=== PATIENT | male | born 1965 | race Caucasian/White ===

== ENCOUNTER 2021-05-07 16:44 | Inpatient (IN) | payer MEDICAID ==
[~2021-05-07] VITALS: Ht 185.4 cm; Wt 86.2 kg
--- NOTE | 2021-05-07 16:53 | NUR ---
PT CAME TO ER C/O DRY MOUTH X 1 MONTH. DENIES ANY OTHER SYMPTOMS, DENIES TAKING ANY NEW MEDICATIONS. AAOX4, BREATHING EVEN AND UNLABORED, SKIN IS WARM AND DRY. SKIN TURGOR IS NORMAL. TONGUE IS MOIST, MISSING TEETH. AWAITING MD FOR EVAL.
--- NOTE | 2021-05-07 16:54 | NUR ---
DR. MARAVILLA AT BEDSIDE
--- NOTE | 2021-05-07 17:04 | NUR ---
BLOOD GLUCOSE EXCEEDS 600. DR MARAVILLA AWARE
--- NOTE | 2021-05-07 17:21 | NUR ---
BLOOD SAMPLE OBTAINED AND SENT TO LAB
--- NOTE | 2021-05-07 17:26 | NUR ---
PT AMBULATED TO RESTROOM
[2021-05-07] MEDS ORDERED: IV NS 0.9% 1,000 ML BAG IV ONE (17:30)
--- NOTE | 2021-05-07 17:30 | NUR ---
PT RETURNED TO BED FROM RESTROOM. IV FLUIDS HUNG
--- NOTE | 2021-05-07 17:31 | NUR ---
URINE SAMPLE OBTAINED AND SENT TO LAB
--- NOTE | 2021-05-07 17:32 | NUR ---
RADIOLOGY AT BEDSIDE
[2021-05-07 17:52] LABS: BASOPHILS # (AUTO) 0.1 K/uL (0.0-0.2); BASOPHILS % (AUTO) 1.5 % (0.0-2.0); EOSINOPHILS % (AUTO) 1.8 % (0.0-6.0); HEMATOCRIT 46 % (39-51); HEMOGLOBIN 15.1 g/dL (13.5-17.5); LYMPHOCYTES # (AUTO) 1.4 K/uL (0.8-4.8); LYMPHOCYTES % (AUTO) 20.8 % (20.0-44.0); MEAN CORPUSCULAR HGB CONC 33 g/dl (31.0-36.0); MEAN CORPUSCULAR VOLUME 93 fL (80-96); MONOCYTES # (AUTO) 0.5 K/uL (0.1-1.30); MONOCYTES % (AUTO) 7.6 % (2.0-12.0); NEUTROPHILS # (AUTO) 4.5 K/uL (1.8-8.9); NEUTROPHILS % (AUTO) 68.3 % (43.0-81.0); PLATELET COUNT (AUTO) 200 K/uL (150-450); WHITE BLOOD COUNT (AUTO) 6.5 K/uL (4.3-11.0)
[2021-05-07 17:59] LABS: ALBUMIN 3.7 g/dL (3.4-5.0); BILIRUBIN,DIRECT 0.3 mg/dL (0.0-0.2); BILIRUBIN,TOTAL 0.7 mg/dL (0.2-1.0); CALCIUM, SERUM 9.3 mg/dL (8.5-10.1); CREATININE 1.2 mg/dL (0.6-1.3)
--- NOTE | 2021-05-07 18:00 | NUR ---
PT AMBULATED TO RESTROOM
--- NOTE | 2021-05-07 18:01 | NUR ---
GLUCOSE 939. AWARE
--- NOTE | 2021-05-07 18:12 | NUR ---
PHARMACY CALLED FOR INSULIN
[2021-05-07] MEDS: IV NS 0.9% 1,000 ML IV PRN (18:15)
--- NOTE | 2021-05-07 18:16 | NUR ---
EKG BEING DONE AT BEDSIDE
[2021-05-07] MEDS ORDERED: INSULIN REGULAR, HUMAN 100 UNITS in IV NS 0.9% 100 ML IV PRN (18:30)
--- NOTE | 2021-05-07 18:48 | NUR ---
PAGED [facility].
--- NOTE | 2021-05-07 18:58 | NUR ---
ANGELA FAJARDO AT BEDSIDE.
--- NOTE | 2021-05-07 19:02 | NUR ---
COVID SAMPLE OBTAINED AND SENT TO LAB
--- NOTE | 2021-05-07 19:07 | NUR ---
COVID SWAB DONE AND SENT TO THE LAB
[2021-05-07] MEDS ORDERED: ACETAMINOPHEN 325 MG TABLET PO PRN (19:30)
[2021-05-07] MEDS ORDERED: ONDANSETRON HCL/PF 4 MG/2 ML VIAL IVP PRN (19:30)
[2021-05-07] MEDS ORDERED: INSULIN REGULAR, HUMAN 100 UNIT in IV NS 0.9% 99 ML IV PRN (19:30)
[2021-05-07 21:47] LABS: BILIRUBIN,URINE NEGATIVE (NEGATIVE); COLOR,URINE YELLOW (YELLOW); LEUKOCYTE ESTERASE ,URINE NEGATIVE (NEGATIVE); NITRITE, URINE NEGATIVE (NEGATIVE); PROTEIN,URINE NEGATIVE (NEGATIVE); UGLUCOSE >=1000 mg/dL (NEGATIVE)
[2021-05-07 21:51] LABS: BACTERIA,URINE None seen /HPF (None Seen); RBC,URINE 0-2 /HPF (0-2); SQUAMOUS EPITHELIAL CELL,UR Few /HPF (None Seen); WBC,URINE 0-2 /HPF (0-3)
--- NOTE | 2021-05-07 23:14 | NUR ---
ICU 258
--- NOTE | 2021-05-07 23:55 | NUR ---
RN/ICU-ADMITTED THIS 55 Y/O MALE FROM ER PER ACLS PROTOCOL .DIAGNOSIS:DIABETIC HYPERGLYCEMIC,HYPEROSMOLAR SYNDROME.ROUTINE ICU ADMISSION CARE INITIATED.PT. AWAKE, ALERT, EXPRESSIVE OF NEEDS.BREATHING COMES EASY ON ROOM AIR W/ SATS.-98%.EKG SR W/ HR-84/MIN. BP-139/86. ON INSULIN DRIP AT 6.06UNITS/HR. LATEST BS-283 MG/DL.PT. VERBALIZING HUNGER. WILL REFER PT. TO [facility]TER FOR INSULIN PROTOCOL AND PT. DIET.
--- NOTE | 2021-05-07 23:56 | NUR ---
PT TRANSFERRED TO ICU 258 VIA ACLS PROTOCOL. VSS. ALL BELONGINGS WITH PT
[2021-05-08] VITALS (17 sets, daily range): BP systolic 120–161; BP diastolic 66–96
[2021-05-08] MEDS: IV NS 0.9% 1,000 ML IV PRN ×6 (00:24→18:05)
[2021-05-08] MEDS ORDERED: INSULIN REGULAR, HUMAN 100 UNIT in IV NS 0.9% 99 ML IV PRN (00:30)
[2021-05-08] MEDS ORDERED: INSULIN NPH, HUMAN ISOPHANE 100 UNIT/ML VIAL SQ ONE (00:48)
[2021-05-08] MEDS: BLOOD SUGAR DIAGNOSTIC 1 EACH STRIP IN SCH ×11 (00:58→21:32)
--- NOTE | 2021-05-08 01:00 | NUR ---
RN/ICU- ON DIABETIC DIET, EATING FOOD SERVED, ATE 100%, DELBERT. WELL. ON NON DKA PROTOCOL ALGORITHM 2. WILL CONTINUE TO MONITOR BS Q HR. PER PROTOCOL.
--- NOTE | 2021-05-08 01:30 | NUR ---
RN/ICU-PT. REMAINS ON STREET CLOTHES, REFUSED TO CHANGE TO HOSPITAL G[facility]. PT HAS ONE IV LINE, REFUSED A SECOND IV LINE FOR NOW.
[2021-05-08 05:40] LABS: BASOPHILS # (AUTO) 0.2 K/uL (0.0-0.2); BASOPHILS % (AUTO) 2.1 % (0.0-2.0); EOSINOPHILS % (AUTO) 3.4 % (0.0-6.0); HEMATOCRIT 43 % (39-51); HEMOGLOBIN 14.9 g/dL (13.5-17.5); LYMPHOCYTES # (AUTO) 2.5 K/uL (0.8-4.8); LYMPHOCYTES % (AUTO) 27.3 % (20.0-44.0); MEAN CORPUSCULAR HGB CONC 35 g/dl (31.0-36.0); MEAN CORPUSCULAR VOLUME 88 fL (80-96); MONOCYTES # (AUTO) 0.5 K/uL (0.1-1.30); MONOCYTES % (AUTO) 5.5 % (2.0-12.0); NEUTROPHILS # (AUTO) 5.7 K/uL (1.8-8.9); NEUTROPHILS % (AUTO) 61.7 % (43.0-81.0); PLATELET COUNT (AUTO) 179 K/uL (150-450); RED BLOOD CELL COUNT(AUTO) 4.86 MIL/uL (4.5-6.0); WHITE BLOOD COUNT (AUTO) 9.3 K/uL (4.3-11.0)
[2021-05-08 06:29] LABS: ALBUMIN 3.3 g/dL (3.4-5.0); BILIRUBIN,TOTAL 0.6 mg/dL (0.2-1.0); CALCIUM, SERUM 8.4 mg/dL (8.5-10.1); CREATININE 0.7 mg/dL (0.6-1.3); POTASSIUM 3.8 mmol/L (3.5-5.1); TOTAL PROTEIN, SERUM 7.3 g/dL (6.4-8.2)
[2021-05-08 06:43] LABS: THYROID STIMULATING HORMONE 4.923 uIU/mL (0.358-3.74)
--- NOTE | 2021-05-08 08:00 | NUR ---
RN NOTES SEEN PATIENT SITTING IN THE EDGE OF THE BED A/O X3, ROOM AIR 96%, WAS COMPLAINING OF ACHING PAIN BILATERAL LOWER EXTREMITIES. ENCOURAGED TO ELEVATE, PATIENT REDIRECTABLE. PATIENT STATE "I MIGHT GOING HOME TODAY". IV ACCESS ON RIGHT AC INTACT, INFUSING INSULIN DRIP 1.5 U, BS-138MG/DL, AND NS @200 ML/HR. BEDSIDE MONITOR SHOWS SR-85. PATIENT DIABETIC DIET. SEEN HOSPITALIST VIA HOSPITALIST DR MCLEOD GET TO ORDER D/C INSULIN DRIP,START AGGRESSIVE SLIDING SCALE, BMP @1100AM, IF UNION GAP FINE D/C PATIENT TO THE MED/SURGE. ORDER TAKEN AND CARRIED OUT.
[2021-05-08] MEDS ORDERED: *INSULIN REGULAR(HUMULIN R)HUM 100 UNIT/ML VIAL SQ PRN (08:30)
[2021-05-08] MEDS ORDERED: DEXTROSE 50%-WATER 50 ML DISP.SYRIN IV PRN (08:30)
[2021-05-08] MEDS: PANTOPRAZOLE 40 MG VIAL IV SCH (08:43)
[2021-05-08] MEDS: METFORMIN 500 MG TABLET PO SCH ×2 (09:18→16:39)
--- NOTE | 2021-05-08 09:19 | NUR ---
RN NOTES ADMINISTERED TYLENOL 650 MG PO PRN FOR BILATERAL LOWER EXTREMITIES PAIN 07/17 PER PATIENT REQUEST. DUE MEDICATION ADMINISTERED. WILL FOLLOW UP.
[2021-05-08] MEDS: INSULIN REGULAR, HUMAN 100 UNIT/ML 3 ML VIAL SQ PRN ×2 (11:43→17:55)
--- NOTE | 2021-05-08 11:44 | NUR ---
RN NOTES BS-263 MG/DL COVERAGE GIVEN, PATIENT TOLERATED LUNCH WELL, WILL TRANSFER PATIENT TO THE MED/SURGE UNIT FOLLOW UP.
--- NOTE | 2021-05-08 13:15 | NUR ---
rn notes transferred patient to the med/surge unit room 321 bed 2 with stable condition, with the meds, patient vss, room air, patient ambulatory, self care, no respiratory distress. bedside report given RN follow plan of care.
--- NOTE | 2021-05-08 13:20 | NUR ---
RN-NOTES RECEIVED PATIENT FROM ICU AWAKE,ALERT X4 AMBULATORY STEADY GAIT.IV LINE 0N R AC #20 INTACT WITH ONGOING IV FLUID OF NS @ 125ML/HR,INFUSING WELL. PATIENT WAS ORIENTED IN THE UNIT. CALL LIGHT WITHIN REACH. WILL CONT. MONITORING.
[2021-05-08 15:52] LABS: BAND % (MANUAL) 1 % (0.0-5.0); EOSINOPHILS % (MANUAL) 3 % (0-4); LYMPHOCYTES % (MANUAL) 32 % (16-48); MONOCYTES % (MANUAL) 6 % (0-11.0); NEUTROPHILS % (MANUAL) 58 (42-76)
[2021-05-08 16:10] LABS: CALCIUM, SERUM 8.1 mg/dL (8.5-10.1); CREATININE 0.6 mg/dL (0.6-1.3); POTASSIUM 3.5 mmol/L (3.5-5.1)
--- NOTE | 2021-05-08 18:23 | NUR ---
RN-NOTES RECEIVED A CALL FROM [employer] REGARDING PATIENT OF MRSA NARES POSITIVE. DR. MCLEOD AWARE WITH T.O ORDER OF BACTROBAN OINT Q12 HR X14 DAYS. NOTED AND CARRIED OUT.
--- NOTE | 2021-05-08 18:35 | NUR ---
RN-CLOSING NOTES PATIENT LYING IN BED,AWAKE A/OX4 NO ACUTE DISTRESS NOTED,WITH ONGOING IV FLUID OF NS @ 125ML/HR INFUSING WELL WELL TOLERATED. IV LINE ON L AC INTACT NO S/S OF COMPLICATION NOTED ON THE SITE.PATIENT ABLE TO AMBULATE WITH STEADY GAIT.ALL NEEDS ATTENDED AND ANTICIPATED, BOTH SIDE RAIL UP,CALL LIGHT WITHIN REACH. WILL ENDORSE TO INCOMING NURSE FOR CONTINUITY OF CARE.
[2021-05-08] MEDS: MUPIROCIN OINT 2% 22 GM TUBE NS SCH (20:50)
[2021-05-09] MEDS: IV NS 0.9% 1,000 ML IV PRN (02:41)
--- NOTE | 2021-05-09 04:37 | NUR ---
ALERT AND ORIENTATED X4 FRIENDLY QUIET COOPERATIVE FREQUENTLY ASKING FOR FOOD / SNACK HS BLOOD SUGAR 263 ON GOING IV INFUSING NS 125 ML HR WAS EXPLAINING TO HIM ABOUT DIET CONTROL AND DIAB AND HI LEVEL AND LOW LEVEL HE SHOWED NO INTEREST, STATED "MY SUGAR ARE ALWAYS hi, CAN I HAVE A SNACK"
[2021-05-09] MEDS: BLOOD SUGAR DIAGNOSTIC 1 EACH STRIP IN SCH ×2 (06:43→11:44)
[2021-05-09] MEDS: INSULIN REGULAR, HUMAN 100 UNIT/ML 3 ML VIAL SQ PRN ×2 (06:49→11:46)
--- NOTE | 2021-05-09 07:32 | NUR ---
MS RN OPENING NOTES RECEIVED PATIENT IN BED AWAKE, A/O X4, ABLE TO MAKE NEEDS KNOWN. NO C/O PAIN OR DISCOMFORT AT THIS TIME. ON ROOM AIR, TOLERATING WELL, NO SOB, BREATHING EVEN AND UNLABORED. IV ACCESS ON LAC INTACT, WITH NS @125ML/HR RUNNING. SAFETY MEASURES IN PLACE, SR UP X2, CALL LIGHT PLACED WITHIN EASY REACH. WILL CONTINUE TO MONITOR.
[2021-05-09 08:45] VITALS: BP 136/78
[2021-05-09] MEDS ORDERED: METFORMIN 500 MG TABLET PO SCH (09:00)
[2021-05-09] MEDS: PANTOPRAZOLE 40 MG VIAL IV SCH (09:00)
[2021-05-09] MEDS: MUPIROCIN OINT 2% 22 GM TUBE NS SCH (09:01)
[2021-05-09] MEDS ORDERED: METF-440 PO (09:21)
[2021-05-09 15:47] VITALS: BP 134/79
--- NOTE | 2021-05-09 16:16 | NUR ---
MS [employer] NOTES PATIENT DISCHARGED HOME IN STABLE CONDITION. ALERT AND ORIENTED X4, ABLE TO MAKE NEEDS KNOWN. NO SIGNS OF ACUTE DISTRESS. VITALS SIGNS TAKEN, STABLE AND RECORDED. IV ACCESS ON LAC REMOVED, NO BLEEDING NOTED, PRESSURE DRESSING APPLIED. ARM NAMEBAND REMOVED. ALL BELONGINGS ACCOUNTED FOR, FORM SIGNED BY PATIENT. DISCHARGE INSTRUCTIONS PROVIDED AND HEALTH TEACHINGS PROVIDED WITH VERBALIZATION OF UNDERSTANDING. PRESCRIPTION GIVEN TO PATIENT. SKIN IS GENERALLY INTACT. PATIENT LEFT UNIT AT 1615 AMBULATORY, FRIEND KJ WILL PICK HIM UP VIA PRIVATE CAR. CN AWARE OF DISCHARGE.
[2021-05-10] MEDS ORDERED: PANTOPRAZOLE 40 MG TABLET.DR PO SCH (07:30)
== END 2021-05-09 16:10 | disposition home or self-care (01) | DRG 420 ==
LOC: ER 16:46 → ICU 23:16 → MED 05-08 13:05
PROVIDERS: ADMIT Nurse Practitioner Acute Care; ATTEND Internal Medicine
DX: E11.00 Type 2 diabetes mellitus with hyperosmolarity without nonketotic hyperglycemic-hyperosmolar coma (NKHHC) (principal); E87.8 Other disorders of electrolyte and fluid balance, not elsewhere classified; E87.1 Hypo-osmolality and hyponatremia; E86.0 Dehydration; F17.210 Nicotine dependence, cigarettes, uncomplicated; R74.01 Elevation of levels of liver transaminase levels
CPT/HCPCS: 36415; 71045-TC; 80048-TC; 80053-TC; 80061-TC; 80076-TC; 81001; 82962-TC; 83690-TC; 84443-TC; 85025-TC; 87081-TC; 87086-TC; C9113; C9803; G0378; J1815; J7030

== ENCOUNTER 2023-05-02 00:05 | Emergency (ER) | payer MEDICAID ==
[~2023-05-02] VITALS: Ht 185.4 cm; Wt 81.6 kg
[~2023-05-02 00:05] MED LIST: METF-440 PO
[2023-05-02] MEDS ORDERED: IBUPROFEN 400 MG TABLET ONE (01:20)
[2023-05-02] MEDS ORDERED: IBUPROFEN 400 MG TABLET PO ONE (01:30)
[2023-05-02] MEDS ORDERED: HYDROCODONE/APAP 5/325MG TABLET PO ONE (03:00)
[2023-05-02] MEDS ORDERED: HYDR-3972 PO ×2 (03:03→03:06)
[2023-05-02] MEDS ORDERED: HYDROCODONE/APAP 5/325MG TABLET ONE (03:04)
[2023-05-02 03:17] VITALS: BP 141/84; TEMP 98.2; O2SAT 99
== END 2023-05-02 03:17 | disposition home or self-care (01) ==
LOC: ER 00:10
DX: S42.031A Displaced fracture of lateral end of right clavicle, initial encounter for closed fracture (principal); S05.11XA Contusion of eyeball and orbital tissues, right eye, initial encounter; E11.9 Type 2 diabetes mellitus without complications; Z79.899 Other long term (current) drug therapy; Z60.2 Problems related to living alone; V09.9XXA Pedestrian injured in unspecified transport accident, initial encounter; Y93.89 Activity, other specified; Y92.89 Other specified places as the place of occurrence of the external cause; Y99.8 Other external cause status
CPT/HCPCS: 70450-TC; 70486-TC; 72125-TC; 73030-TC

== ENCOUNTER 2023-07-19 18:49 | Emergency (ER) | payer MEDICAID, OTHER ==
[~2023-07-19] VITALS: Ht 185.4 cm; Wt 90.7 kg
[~2023-07-19 18:49] MED LIST changes: +HYDR-3972 PO
[2023-07-19] MEDS ORDERED: KETOROLAC TROMETHAMINE 15 MG/ML VIAL ONE (19:29)
[2023-07-19] MEDS: KETOROLAC TROMETHAMINE 15 MG/ML VIAL IM ONE (19:37)
[2023-07-19] MEDS ORDERED: IBUP-1957 PO (20:34)
[2023-07-19] MEDS ORDERED: ACET-2605 PO (20:34)
[2023-07-19 21:09] VITALS: BP 120/89; TEMP 97.6; O2SAT 99
== END 2023-07-19 21:11 | disposition home or self-care (01) ==
LOC: ER 18:54
DX: S43.101A Unspecified dislocation of right acromioclavicular joint, initial encounter (principal); S42.121A Displaced fracture of acromial process, right shoulder, initial encounter for closed fracture; Z79.899 Other long term (current) drug therapy; Z60.2 Problems related to living alone; W17.89XA Other fall from one level to another, initial encounter; Y93.89 Activity, other specified; Y92.89 Other specified places as the place of occurrence of the external cause; Y99.8 Other external cause status
CPT/HCPCS: 29105; 73030; 73080; 96372; 99284; J1885